=== PATIENT | male | born 1970 | race Caucasian/White ===

== ENCOUNTER 2018-04-07 07:44 | Inpatient (IN) | payer BC, OTHER ==
[~2018-04-07] VITALS: Ht 167.6 cm; Wt 90.8 kg
[2018-04-07 08:28] LABS: BASOPHILS # (AUTO) 0.02 x10^3/uL (0-0.1); BASOPHILS % (AUTO) 0 % (0-1); EOSINOPHILS % (AUTO) 0 % (1-7); LYMPHOCYTES # (AUTO) 1.22 x10^3/uL (1-3.4); LYMPHOCYTES % (AUTO) 8 % (22-44); MD NO; MEAN CORPUSCULAR HEMOGLOBIN 28.3 pg (27.5-34.5); MEAN CORPUSCULAR HGB CONC 34.1 g/dL (33.2-36.2); MEAN CORPUSCULAR VOLUME 82.9 fL (81-97); MEAN PLATELET VOLUME 7.7 fL (7.4-10.4); MONOCYTES # (AUTO) 0.91 x10^3/uL (0.2-0.8); MONOCYTES % (AUTO) 6 % (2-9); NEUTROPHILS # (AUTO) 13.03 x10^3/uL (1.8-6.8); NEUTROPHILS % (AUTO) 86 % (42-75); PLATELET COUNT 250 x10^3/uL (130-400); RED BLOOD COUNT 5.38 x10^6/uL (4.38-5.82); RED CELL DISTRIBUTION WIDTH 12.8 % (9.4-14.8)
[2018-04-07] MEDS ORDERED: ONDANSETRON 2MG/ML, 2ML IVPush ONE (08:30)
[2018-04-07 08:39] LABS: ALBUMIN 4.5 g/dL (3.4-5.0); ANION GAP 10 mmol/L (5-15); CALCIUM 9.3 mg/dL (8.5-10.1); CHLORIDE 108 mmol/L (98-107); CREATININE 1.31 mg/dL (0.7-1.3)
[2018-04-07] MEDS ORDERED: HYDROmorphone 2 MG/ML, 1ML ONE ×4 (08:40→15:58)
[2018-04-07] MEDS ORDERED: ONDANSETRON 2MG/ML, 2ML ONE (08:41)
[2018-04-07] MEDS: HYDROmorphone 2 MG/ML, 1ML IVPush PRN ×4 (08:44→13:24)
[2018-04-07] MEDS ORDERED: SODIUM CHLORIDE FLUSH 10ML SYR IVF ONE (09:30)
[2018-04-07 11:08] LABS: MICROSCOPIC INDICATED
[2018-04-07 11:24] LABS: CULTURE INDICATED? NO
[2018-04-07] MEDS ORDERED: SODIUM CHLORIDE 0.9% 1,000 ML IV ONE (13:42)
[2018-04-07] MEDS ORDERED: HYDROmorphone 1 MG/ML, 1ML IVPush PRN (14:00)
[2018-04-07] MEDS ORDERED: ONDANSETRON 2MG/ML, 2ML IVPush PRN ×2 (14:00→19:30)
[2018-04-07] MEDS ORDERED: SODIUM CHLORIDE FLUSH 10ML SYR IVF PRN (14:00)
[2018-04-07 15:45] VITALS: BP 120/91
[2018-04-07] MEDS ORDERED: MIDAZOLAM 1 MG/ML, 2ML ONE (18:19)
[2018-04-07] MEDS ORDERED: FENTANYL PF 100 MCG/2ML ONE ×2 (18:25→20:16)
[2018-04-07] MEDS ORDERED: PROPOFOL 10 MG/ML, 20ML ONE (18:25)
[2018-04-07] MEDS ORDERED: ROCURONIUM 10 MG/ML,10ML ONE (18:25)
[2018-04-07] MEDS ORDERED: CIPROFLOXACIN/PMX 400MG/200ML 200 ML IVPB ONE (18:25)
[2018-04-07] MEDS ORDERED: SUCCINYLCHOLINE 20 MG/ML, 10ML ONE (18:25)
[2018-04-07] MEDS ORDERED: MEPERIDINE/PF 25MG/0.5ML IVPush PRN (19:30)
[2018-04-07] MEDS ORDERED: FENTANYL PF 100 MCG/2ML IV PRN (19:30)
[2018-04-07] MEDS ORDERED: KETOROLAC 30 MG/1 ML IV PRN (19:30)
[2018-04-07] MEDS ORDERED: ALBUTEROL SULFATE 2.5 MG/3 ML NPPB PRN (19:30)
[2018-04-07] MEDS ORDERED: HYDROmorphone 1 MG/ML, 1ML IV PRN (19:30)
[2018-04-07] MEDS ORDERED: PROMETHAZINE 25 MG/ML, 1ML IV PRN (19:30)
[2018-04-07] MEDS ORDERED: LABETALOL 5MG/ML, 20ML IV PRN (19:30)
[2018-04-07] MEDS ORDERED: hydrALAzine 20 MG/ML, 1ML IV PRN (19:30)
[2018-04-07] MEDS ORDERED: OXYcodone 5 MG/5 ML ORAL.SOL UDC PO PRN (19:30)
[2018-04-07] MEDS ORDERED: OMNIPAQUE 350 MG/ML, 50 ML BOTTLE ONE (19:45)
[2018-04-07] MEDS ORDERED: OXYcodone 5 MG/5 ML ORAL.SOL UDC ONE (20:16)
[2018-04-07 20:50] VITALS: BP 131/77
[2018-04-08 00:10] VITALS: BP 102/67
[2018-04-08] MEDS: PHENAZOPYRIDINE 100 MG TABLET PO PRN ×2 (00:25→08:30)
[2018-04-08 04:00] VITALS: BP 118/65
[2018-04-08 07:36] VITALS: BP 137/81
[2018-04-08] MEDS ORDERED: TAMS-11 PO (11:37)
[2018-04-08] MEDS ORDERED: TRAM50TA2 PO (11:38)
== END 2018-04-08 12:00 | disposition home or self-care (01) | DRG 669 ==
LOC: ED 09:39 → EDIP 13:42 → 4NOR 15:36 → DCLOUNGE 04-08 11:34
PROVIDERS: ADMIT Urology; ATTEND Urology
PROC: 0TC68ZZ Extirpation of Matter from Right Ureter, Via Natural or Artificial Opening Endoscopic (ICD-10-PCS; 2018-04-07)
PROC: BT1D1ZZ Fluoroscopy of Right Kidney, Ureter and Bladder using Low Osmolar Contrast (ICD-10-PCS; 2018-04-07)
PROC: 0T7D8ZZ Dilation of Urethra, Via Natural or Artificial Opening Endoscopic (ICD-10-PCS; 2018-04-07)
PROC: 0TJB8ZZ Inspection of Bladder, Via Natural or Artificial Opening Endoscopic (ICD-10-PCS; principal; 2018-04-07 16:00)
DX: N13.2 Hydronephrosis with renal and ureteral calculous obstruction (principal); R31.9 Hematuria, unspecified
CPT/HCPCS: 36415; 74176; 74420; 80048; 81001; 82040; 85025; 96374; 96375; 96376; 99285; J0744; J1170; J2250; J2405; J2704; J3010; Q9967; C1758; C1769; J0330; J7030

== ENCOUNTER 2021-01-24 04:23 | Observation (INO) | payer BC, OTHER ==
[~2021-01-24] VITALS: Ht 167.6 cm; Wt 91.8 kg
[~2021-01-24 04:23] MED LIST: TAMS-11 PO; TRAM50TA2 PO
--- NOTE | 2021-01-24 04:42 | NUR ---
PT PRESENTS TO ER COMPLAINING OF RIGHT FLANK PAIN, PT STATES HE HAS KIDNEY STONES AND STATES THAT HE HAS HAD THEM BEFORE AND THIS IS WHAT IT FEELS LIKE.
[2021-01-24] MEDS ORDERED: KETOROLAC 30 MG/1 ML ONE ×3 (05:19→16:02)
[2021-01-24] MEDS ORDERED: MORPHINE SULFATE 4 MG/ML, 1ML ONE (05:20)
[2021-01-24] MEDS ORDERED: MORPHINE SULFATE 4 MG/ML, 1ML IVPush PRN (05:30)
[2021-01-24] MEDS ORDERED: SODIUM CHLORIDE FLUSH 10ML SYR IVF ONE (05:30)
[2021-01-24] MEDS ORDERED: KETOROLAC 30 MG/1 ML IVPush ONE (05:30)
[2021-01-24 05:45] LABS: MICROSCOPIC AUTO
--- NOTE | 2021-01-24 05:53 | NUR ---
PT NO LONGER IN EXCRUTIATING PAIN AND NO LONGER VOMITTING AND DRY HEAVING, PT LAYING IN BED TALKING TO ON PHONE
[2021-01-24 06:03] LABS: BASOPHILS % (AUTO) 1 % (0-1); EOSINOPHILS % (AUTO) 1 % (1-7); LYMPHOCYTES % (AUTO) 16 % (22-44); MEAN CORPUSCULAR HEMOGLOBIN 28.3 pg (27.5-34.5); MEAN CORPUSCULAR HGB CONC 34.8 g/dL (33.2-36.2); MEAN PLATELET VOLUME 7.3 fL (7.4-10.4); MONOCYTES % (AUTO) 7 % (2-9); NEUTROPHILS % (AUTO) 76 % (42-75); PLATELET COUNT 267 x10^3/uL (130-400); RED BLOOD COUNT 5.28 x10^6/uL (4.38-5.82); RED CELL DISTRIBUTION WIDTH 13.4 % (9.4-14.8)
[2021-01-24 06:14] LABS: ALBUMIN 4.1 g/dL (3.4-5.0); ANION GAP 9 mmol/L (5-15); CALCIUM 9.3 mg/dL (8.5-10.1); CHLORIDE 106 mmol/L (98-107); CREATININE 0.76 mg/dL (0.7-1.3)
--- NOTE | 2021-01-24 07:14 | NUR ---
REPORT RECEIVED FROM LEVI WHITAKER
--- NOTE | 2021-01-24 07:22 | NUR ---
PT RESTING IN BED, A&O, RESPS EVEN AND UNLABORED, VSS. STATES PAIN HAS DECREASED TO 4/10 FROM 04/26.
[2021-01-24] MEDS ORDERED: TAMSULOSIN 0.4 MG CAP.ER.24H PO ONE (07:30)
[2021-01-24] MEDS ORDERED: TAMSULOSIN 0.4 MG CAP.ER.24H ONE (07:58)
[2021-01-24] MEDS ORDERED: SODIUM CHLORIDE 0.9% 1,000 ML IV ONE (08:00)
--- NOTE | 2021-01-24 08:00 | NUR ---
late entry d/t patient care: MD martinez ok'd flomax admin with sip of water. pt kept NPO otherwise.
[2021-01-24] MEDS ORDERED: DOCUSATE 100 MG CAPSULE PO PRN (09:00)
[2021-01-24] MEDS ORDERED: POLYETHYLENE GLYCOL 17 GM PACKET PO PRN (09:00)
[2021-01-24] MEDS ORDERED: ONDANSETRON 2MG/ML, 2ML IVPush PRN (09:00)
[2021-01-24] MEDS ORDERED: BISACODYL 10 MG SUPP PR PRN (09:00)
[2021-01-24] MEDS ORDERED: ENALAPRILAT 1.25 MG/ML, 2ML IVPush PRN (09:00)
[2021-01-24] MEDS ORDERED: ONDANSETRON ODT 4 MG PO PRN (09:00)
[2021-01-24] MEDS ORDERED: ACETAMINOPHEN 325 MG TABLET PO PRN (09:00)
[2021-01-24] MEDS ORDERED: KETOROLAC 30 MG/1 ML IV PRN (09:00)
[2021-01-24] MEDS ORDERED: SODIUM CHLORIDE 0.9% 1,000 ML IV SCH (09:00)
[2021-01-24] MEDS ORDERED: HYDROcodone/APAP 5/325 TABLET PO PRN (09:00)
[2021-01-24] MEDS ORDERED: LABETALOL 5MG/ML, 20ML IVPush PRN (09:00)
--- NOTE | 2021-01-24 09:13 | NUR ---
REPORT GIVEN TO RECEIVING RN TANG
[2021-01-24] MEDS ORDERED: morphine SULFATE 10 MG/ML, 1ML ONE (09:16)
[2021-01-24] MEDS: morphine SULFATE 10 MG/ML, 1ML IVPush PRN ×2 (09:18→14:35)
--- NOTE | 2021-01-24 09:22 | NUR ---
preceptor RN note: pt reports increasing right flank pain, level 4/10. medicated per emar with morphine 4mg as pt tolerated previous dose well. pt a&o, resps even and unlabored, bp and spo2 monitors in place. call light in reach. awaiting transport to floor at this time.
--- NOTE | 2021-01-24 09:38 | NUR ---
pt a&o, resps even and unlabored. tolerated morphine well, no complaint at time of transport. pt saturating at 97% on room air at time of transport, placed on oxygen at 2L/min for transport d/t recent morphine admin. pt transported to floor in no acute distress, NPO status maintained, pt educated regarding POC.
[2021-01-24 09:52] VITALS: BP 124/83
[2021-01-24 11:27] VITALS: BP 124/83
[2021-01-24 13:02] VITALS: BP 106/69
[2021-01-24] MEDS ORDERED: PROMETHAZINE 25 MG/ML, 1ML IVPush PRN (15:30)
[2021-01-24] MEDS ORDERED: hydrALAzine 20 MG/ML, 1ML IV PRN (15:30)
[2021-01-24] MEDS ORDERED: OXYcodone 5 MG/5 ML ORAL.SOL UDC PO PRN (15:30)
[2021-01-24] MEDS ORDERED: DIPHENHYDRAMINE 50 MG/ML, 1ML IVPush PRN (15:30)
[2021-01-24] MEDS ORDERED: MEPERIDINE/PF 25MG/0.5ML IVPush PRN (15:30)
[2021-01-24] MEDS ORDERED: HALOPERIDOL 5 MG/ML IV PRN (15:30)
[2021-01-24] MEDS ORDERED: LABETALOL 5MG/ML, 20ML IV PRN (15:30)
[2021-01-24] MEDS ORDERED: MIDAZOLAM 1 MG/ML, 2ML ONE (15:39)
[2021-01-24] MEDS ORDERED: FENTANYL PF 250 MCG/5ML ONE (15:40)
[2021-01-24] MEDS ORDERED: CEFAZOLIN 1,000 MG ONE (15:52)
[2021-01-24] MEDS ORDERED: SUCCINYLCHOLINE 20 MG/ML, 10ML ONE (15:52)
[2021-01-24] MEDS ORDERED: ROCURONIUM 10 MG/ML,10ML ONE (15:52)
[2021-01-24] MEDS ORDERED: ONDANSETRON 2MG/ML, 2ML ONE (15:52)
[2021-01-24] MEDS ORDERED: DEXAMETHASONE 4 MG/ML, 1ML ONE (15:52)
[2021-01-24] MEDS ORDERED: PROPOFOL 10 MG/ML, 20ML ONE (15:52)
[2021-01-24] MEDS ORDERED: FENTANYL PF 100 MCG/2ML ONE (17:05)
[2021-01-24] MEDS ORDERED: OXYcodone 5 MG/5 ML ORAL.SOL UDC ONE (17:06)
[2021-01-24] MEDS: FENTANYL PF 100 MCG/2ML IV PRN ×2 (17:11→17:16)
[2021-01-24] MEDS ORDERED: HYDROmorphone 1 MG/ML, 1ML INJ ONE (17:27)
[2021-01-24] MEDS: HYDROmorphone 1 MG/ML, 1ML INJ IVPush PRN ×2 (17:28→17:38)
[2021-01-24] MEDS ORDERED: TAMS-11 PO ×2 (18:37→18:39)
[2021-01-24] MEDS ORDERED: OXYC5TAB98 PO (19:38)
== END 2021-01-24 20:15 | disposition home or self-care (01) ==
LOC: ED 07:04 → EDIP 07:57 → 4NW 09:39
PROVIDERS: ADMIT Internal Medicine; ATTEND Internal Medicine
DX: N13.2 Hydronephrosis with renal and ureteral calculous obstruction (principal); Z20.822 Contact with and (suspected) exposure to COVID-19; D72.829 Elevated white blood cell count, unspecified; R31.9 Hematuria, unspecified; I10 Essential (primary) hypertension; F12.90 Cannabis use, unspecified, uncomplicated; Z87.442 Personal history of urinary calculi; Z79.899 Other long term (current) drug therapy
CPT/HCPCS: 36415; 52356; 74176; 80048; 81001; 82040; 82360; 85025; 87086; 87635; 88300; 96361; 96374; 96375; 96376; 99284; C1758; C1769; C2617; G0378; J0330; J0690; J1100; J1170; J1885; J2250; J2270; J2405; J2704; J3010; J7030